=== PATIENT | female | born 1960 | race Caucasian/White ===

== ENCOUNTER 2018-01-27 20:03 | Inpatient (IN) | payer OTHER ==
[~2018-01-27] VITALS: Ht 162.6 cm; Wt 114.3 kg
[2018-01-27 22:36] LABS: HEMOGLOBIN 12.4 G/DL (11.9-15.5); MCH 27.7 PG (29.0-34.0); MCHC 31.8 G/DL (30.0-36.0); MCV 87.2 FL (83-99); PLATELET COUNT 297 K/uL (156-360); RBC DIS.WIDTH-CV 14.5 % (11.8-14.6); RBC DIS.WIDTH-SD 46.6 % (39-53); RED BLOOD COUNT 4.47 M/uL (3.80-5.20)
[2018-01-27 22:47] LABS: CHLORIDE 101 mEq/L (99-109); POTASSIUM 3.9 mEq/L (3.7-5.4); SODIUM 141 mEq/L (136-147)
[2018-01-27 22:49] LABS: GLUCOSE 91 mg/dL (70-99)
[2018-01-27 22:52] LABS: SERUM ETHYL ALCOHOL < 10 mg/dL
[2018-01-27 22:53] LABS: GFR ESTIMATE (CALCULATED) > 59 mL/min/
[2018-01-27 22:54] LABS: UREA NITROGEN (BUN) 19 mg/dL (9-23)
[2018-01-27 23:08] LABS: AMPHETAMINE NEGATIVE (500 ng/mL); BARBITURATES NEGATIVE (200 ng/mL); BENZODIAZEPINES NEGATIVE (150 ng/mL); BUPRENORPHINE NEGATIVE (10 ng/mL); COCAINE NEGATIVE (150 ng/mL); METHADONE NEGATIVE (200 ng/mL); METHAMPHETAMINE NEGATIVE (500 ng/mL); OPIATES (MORPHINE) NEGATIVE (100 ng/mL); OXYCODONE NEGATIVE (100 ng/mL); PHENCYCLIDINE NEGATIVE (25 ng/mL); PROPOXYPHENE NEGATIVE (300 ng/mL); THC CANNABINOIDS NEGATIVE (50 ng/mL); TRICYCLIC ANTIDEPRESSANTS NEGATIVE (300 ng/mL)
[2018-01-28] MEDS ORDERED: SPIRONOLACTONE50 MG PO (04:45)
[2018-01-28] MEDS ORDERED: ACID REDUCER20 M1 PO (04:46)
[2018-01-28] MEDS ORDERED: LOPRESSOR25 MG PO (04:47)
[2018-01-28] MEDS ORDERED: DICLOFENAC SODI50 MG PO (04:48)
[2018-01-28] MEDS ORDERED: VITAMIN D32000 UNI1 PO (04:49)
[2018-01-28] MEDS ORDERED: BUSPIRONE HCL10 MG PO (04:52)
[2018-01-28] MEDS ORDERED: LUBRICANT DRY E15 ML BOTH EYES (04:52)
[2018-01-28] MEDS ORDERED: WELLBUTRIN SR200 MG PO ×2 (04:53→04:54)
[2018-01-28] MEDS ORDERED: BUMEX1 MG PO (04:55)
[2018-01-28] MEDS ORDERED: ADULT LOW DOSE81 M1 PO (04:56)
[2018-01-28] MEDS ORDERED: PAIN RELIEF EX500 MG PO (04:58)
[2018-01-28 09:49] VITALS: BP 135/73
[2018-01-28 16:12] VITALS: BP 122/58
[2018-01-29 21:22] VITALS: BP 135/72
[2018-01-30 07:48] VITALS: BP 115/64
[2018-01-30 15:30] VITALS: BP 115/66
[2018-01-31 07:58] VITALS: BP 142/70
[2018-01-31] MEDS ORDERED: WELLBUTRIN SR150 MG PO (08:48)
[2018-01-31] MEDS ORDERED: GABAPENTIN100 MG PO (08:50)
[2018-01-31] MEDS ORDERED: BUSPAR15 MG PO (08:50)
== END 2018-01-31 12:57 | disposition home or self-care (01) | DRG 885 ==
LOC: EME 20:03 → EDOF 22:43 → 1WEST 22:43 → ENRESERV 01-28 00:17 → 1WEST 01-28 00:26
DX: F33.1 Major depressive disorder, recurrent, moderate (principal); F43.12 Post-traumatic stress disorder, chronic; F60.3 Borderline personality disorder; R45.851 Suicidal ideations; I10 Essential (primary) hypertension; Z91.5 Personal history of self-harm; Z88.2 Allergy status to sulfonamides; Z79.82 Long term (current) use of aspirin
CPT/HCPCS: 80048; 85027; 90839; 97150 GO; 97165 GO; 99281; 99284; G0480

== ENCOUNTER 2018-05-10 17:29 | Inpatient (IN) | payer OTHER ==
[~2018-05-10] VITALS: Ht 165.1 cm; Wt 114.0 kg
[~2018-05-10 17:29] MED LIST: ACID REDUCER20 M1 PO; ADULT LOW DOSE81 M1 PO; BUMEX1 MG PO; BUSPAR15 MG PO; BUSPIRONE HCL10 MG PO; DICLOFENAC SODI50 MG PO; GABAPENTIN100 MG PO; LOPRESSOR25 MG PO; LUBRICANT DRY E15 ML BOTH EYES; PAIN RELIEF EX500 MG PO; SPIRONOLACTONE50 MG PO; VITAMIN D32000 UNI1 PO; WELLBUTRIN SR150 MG PO; WELLBUTRIN SR200 MG PO
[2018-05-10 21:31] LABS: HEMATOCRIT 40.3 % (36.0-46.0); HEMOGLOBIN 13.1 G/DL (11.9-15.5); MCH 28.9 PG (29.0-34.0); MCHC 32.5 G/DL (30.0-36.0); MCV 88.8 FL (83-99); PLATELET COUNT 303 K/uL (156-360); RBC DIS.WIDTH-CV 13.1 % (11.8-14.6); RBC DIS.WIDTH-SD 42.5 % (39-53); RED BLOOD COUNT 4.54 M/uL (3.80-5.20); WHITE BLOOD COUNT 7.2 K/uL (4.1-10.2)
[2018-05-10 21:50] LABS: CHLORIDE 103 mEq/L (99-109); POTASSIUM 3.7 mEq/L (3.7-5.4); SODIUM 141 mEq/L (136-147)
[2018-05-10 21:52] LABS: GLUCOSE 87 mg/dL (70-99)
[2018-05-10 21:55] LABS: SERUM ETHYL ALCOHOL < 10 mg/dL
[2018-05-10 21:56] LABS: CREATININE 0.9 mg/dL (0.6-1.3); GFR ESTIMATE (CALCULATED) > 59 mL/min/
[2018-05-10 21:57] LABS: UREA NITROGEN (BUN) 15 mg/dL (9-23)
[2018-05-10 21:59] LABS: ACETAMINOPHEN (TYLENOL) < 10 mcg/mL (10-30); SALICYLATE < 5.0 MG/DL (15-30)
[2018-05-10 22:06] LABS: AMPHETAMINE NEGATIVE (500 ng/mL); BARBITURATES NEGATIVE (200 ng/mL); BENZODIAZEPINES NEGATIVE (150 ng/mL); BUPRENORPHINE NEGATIVE (10 ng/mL); COCAINE NEGATIVE (150 ng/mL); METHADONE NEGATIVE (200 ng/mL); METHAMPHETAMINE NEGATIVE (500 ng/mL); OPIATES (MORPHINE) NEGATIVE (100 ng/mL); OXYCODONE NEGATIVE (100 ng/mL); PHENCYCLIDINE NEGATIVE (25 ng/mL); PROPOXYPHENE NEGATIVE (300 ng/mL); THC CANNABINOIDS NEGATIVE (50 ng/mL); TRICYCLIC ANTIDEPRESSANTS NEGATIVE (300 ng/mL)
[2018-05-11 04:04] VITALS: BP 138/76
[2018-05-11 08:02] VITALS: BP 120/60
[2018-05-11 15:58] VITALS: BP 132/80
[2018-05-12 07:31] VITALS: BP 136/65
[2018-05-12 16:23] VITALS: BP 110/61
[2018-05-13 07:43] VITALS: BP 110/53
[2018-05-13 15:57] VITALS: BP 109/63
[2018-05-14 09:07] VITALS: BP 115/64
[2018-05-14 14:59] VITALS: BP 101/57
[2018-05-15 07:30] VITALS: BP 135/61
[2018-05-15 15:11] VITALS: BP 135/64
[2018-05-16 08:02] VITALS: BP 103/55
[2018-05-16] MEDS ORDERED: DULOXETINE HCL30 MG PO (09:57)
[2018-05-16] MEDS ORDERED: BUSPAR15 MG PO (12:43)
[2018-05-16] MEDS ORDERED: WELLBUTRIN SR150 MG PO (12:45)
== END 2018-05-16 13:15 | disposition home or self-care (01) | DRG 883 ==
LOC: EME 17:29 → 1WEST 21:59 → EDOF 21:59 → 1WEST 05-11 03:36 → ENRESERV 05-11 03:37 → 1WEST 05-16 13:15
PROVIDERS: Emergency Medicine
DX: F60.3 Borderline personality disorder (principal); F33.1 Major depressive disorder, recurrent, moderate; R45.851 Suicidal ideations; F43.12 Post-traumatic stress disorder, chronic; F91.9 Conduct disorder, unspecified; I10 Essential (primary) hypertension; M54.9 Dorsalgia, unspecified; R45.87 Impulsiveness; G47.00 Insomnia, unspecified; F41.9 Anxiety disorder, unspecified; Z90.49 Acquired absence of other specified parts of digestive tract
CPT/HCPCS: 80048; 85027; 90839; 97150 GO; 97165 GO; 99281; 99285; G0480; Q0177